=== PATIENT | male | born 1990 | race Caucasian/White ===

== ENCOUNTER 2020-07-17 00:13 | Emergency (ER) | payer OTHER ==
[~2020-07-17] VITALS: Ht 175.3 cm; Wt 95.3 kg
[2020-07-17 00:20] VITALS: BP 161/105
--- NOTE | 2020-07-17 00:20 | NUR ---
ED Nurse Note: Patient brought into ED from home by YAAKOV RA 829 and LOY for laceration to left forearm. Patient states he was cut by a knife. He is not being specific at this time as to what exactly happened. He denies wanting to kill himself at this time. [employer] is bedside questioning patient. Laceration is actively bleeding; pressure dressing applied and MD bedside. Patient is breathing normal and unlabored. He is aaox4.
[2020-07-17] MEDS ORDERED: Hydrogen Peroxide 473ml Bottle TOPIC ONE (00:28)
[2020-07-17] MEDS ORDERED: Bacitracin Oint UD TOPIC ONE (00:30)
[2020-07-17] MEDS ORDERED: Lidocaine 1% 10mg/ml/Epi 0.005mg/ml 10ml INJ ONE ×2 (00:30→07:06)
--- NOTE | 2020-07-17 01:00 | NUR ---
ED Nurse Note: Patient placed on medical hold by MD Bolivar due to patient's self inflicted wound. Patient does not have a plan to harm himself nor is he suicidal at this time. He is calm and cooperative. No acute distress.
--- NOTE | 2020-07-17 01:05 | NUR ---
ED Nurse Note: ERMD bedside for laceration repair.
[2020-07-17 01:40] VITALS: BP 153/88
--- NOTE | 2020-07-17 01:50 | NUR ---
ED Nurse Note: Tourniquet placed by ERMD at 0141 and second tourniquet placed at 0145 for bleeding control.
[2020-07-17 01:55] LABS: BASOPHILS % (AUTO) 1.2 % (0.0-2.0); EOSINOPHILS % (AUTO) 1.1 % (0.0-3.0); HEMATOCRIT 44.4 % (42.0-52.0); HEMOGLOBIN 15.1 G/DL (14.2-18.0); LYMPHOCYTES % (AUTO) 33.8 % (20.0-45.0); MEAN CORPUSCULAR VOLUME 100 FL (80-99); MONOCYTES % (AUTO) 10.2 % (1.0-10.0); NEUTROPHILS % (AUTO) 53.8 % (45.0-75.0); PLATELET COUNT 223 K/UL (150-450); RED BLOOD COUNT 4.43 M/UL (4.70-6.10); RED CELL DISTRIBUTION WIDTH 12.2 % (11.6-14.8)
[2020-07-17] MEDS ORDERED: ceFAZolin sod 1 GM in NS 55 ML IVPB ONE (02:00)
[2020-07-17] MEDS ORDERED: Morphine Sulfate 4mg/ml Inj (IV USE ONLY) IVP ONE (02:00)
--- NOTE | 2020-07-17 02:00 | NUR ---
ED Nurse Note: BEVERLY Bolivar did not repair laceration. MD Maharaj bedside for laceration repair.
--- NOTE | 2020-07-17 02:05 | NUR ---
ED Nurse Note: LUMA ROTH AT BEDSIDE FOR SURGICAL CONSULT
--- NOTE | 2020-07-17 02:10 | NUR ---
ED Nurse Note: Tourniquets removed from L arm at this time with MD Maharaj order to remove. Patient is able to move fingers and arm.
[2020-07-17 02:12] LABS: ANION GAP 13 mmol/L (5-15); BLOOD UREA NITROGEN 11 mg/dL (7-18); CALCIUM 8.1 MG/DL (8.5-10.1); CARBON DIOXIDE 21 MMOL/L (21-32); CHLORIDE 107 MMOL/L (98-107); POTASSIUM 4.1 MMOL/L (3.5-5.1); SODIUM 141 MMOL/L (136-145)
[2020-07-17 02:17] LABS: ALANINE AMINOTRANSFERASE 299 U/L (12-78); ALBUMIN 3.9 G/DL (3.4-5.0); ALBUMIN/GLOBULIN RATIO 1.1 (1.0-2.7); ALKALINE PHOSPHATASE 107 U/L (46-116); ASPARTATE AMINO TRANSFERASE 271 U/L (15-37); BILIRUBIN,TOTAL 0.2 MG/DL (0.2-1.0)
--- NOTE | 2020-07-17 02:35 | Emergency Room Report ---
History of Present Illness General Chief Complaint: Laceration Source: Patient, EMS (Owen Bolivar MD) Present Illness HPI Patient brought in by EMS. He has a laceration to the left forearm and refused to say how it occurred. [employer] are present also. Later when [employer] have left the patient admits that he self-inflicted this wound. Is girlfriend was cheating on him. He found this out yesterday. He was doing this to scare her but ended up cutting himself more deeply. There was arterial bleeding at home. He is uncertain how much blood he lost. Has a history of hypertension. He denies any numbness. Right-handed. Last tetanus either 2010 or 2011. The patient is never taken psychiatric medication. He does take Ativan for anxiety. He has had problems with alcohol withdrawal in the past. Patient is unaware of any contact with COVID-19 positive contacts. No fevers, chills, sore throat, chest pain, palpitations, nausea, vomiting, diarrhea, dysuria, abdominal pain, shortness of breath, joint pain, visual changes, dizziness, headache. 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 Reviewed Nursing Documentation: PMH: Agreed; PSxH: Agreed (Owen Bolivar MD) Nursing Documentation-PMH Hx Asthma: Yes (Owen Bolivar MD) Review of Systems All Other Systems: negative except mentioned in HPI (Owen Bolivar MD) Physical Exam Vital Signs Date Time Temp Pulse Resp B/P (MAP) Pulse Ox O2 Delivery O2 Flow Rate FiO2 07/17/20 00:12 99.0 142 18 161/105 (123) 99 Room Air Sp02 EP Interpretation: reviewed, normal General Appearance: well appearing, no apparent distress, GCS 15 Head: normocephalic Eyes: bilateral eye normal inspection ENT: moist mucus membranes Neck: supple Respiratory: lungs clear, normal breath sounds Cardiovascular #1: regular rate, rhythm Cardiovascular #2: 2+ radial (R) Gastrointestinal: normal inspection, normal bowel sounds, non tender, no mass, non-distended, overweight Genitourinary: no CVA tenderness Musculoskeletal: back normal, normal range of motion, gait/station normal, other - All wrist and finger tendons tested and functional Neurologic: alert, motor strength/tone normal, feather mixer III-XII nml as tested, d istal neuro normal, oriented x3 Psychiatric: depressed affect Suicide Risk Assessment: Suicidal Ideation: No Had intent to initiate attempt: Yes Pt's plan for suicide attempt: No Has means to complete attempt: Yes Skin: warm/dry, laceration - Deep 7 cm laceration left forearm more volar surface but more on the radial side (Owen Bolivar MD) Procedures Critical Care Time Critical Care Time Total Critical Care Time: 45 min bedside evaluation and treatment excludes procedures (EKG). Reason for critical care: Assessment of self-harm, hemorrhage control, consultation with general surgeon Possible complications: hypotension, hypertension, NV, shock, arrhythmias, metabolic acidosis, end organ damage, respiratory failure, blood loss and hemorrhage. Interventions: Placement on medical hold, arterial hemorrhage bleeding control, PT evaluations, emergent consultation with general surgeon, antibiotics Course: Patient presents with a self-inflicted left forearm injury. Determined to be self-harm and placed on medical hold. Hemorrhage control with application of direct pressure for at least 20 minutes. Antibiotics begun. Reassessment of bleeding status. Consultation with general surgery. Assist in general surgeon who responded to the emergency department and repaired laceration. Discussion with oncoming emergency physician. Consultations: nursing staff, EMS, consultation with general surgeon Performed by: Dr. Bolivar Tolerated well condition = serious (Owen Bolivar MD) Additional Procedure Procedure Narrative Arterial hemorrhage control laceration left forearm: Patient presented with a deep laceration. This was prepped with Betadine and there numbed with lidocaine 1% with epinephrine. A total of 7 cc were instilled subcutaneously and also deep into the muscle tissue. Bleeding started to become brisk and therefore a tourniquet was applied. Bleeding was slowed however incomplete therefore blood pressure cuff was applied while I had direct pressure on the arterial source and venous sources of bleeding. Tourniquets blood pressure cuff were continued and bleeding was controlled. The wound was packed with sterile 4 x 4's and an Pablo wrap was applied. General surgeon was contacted and came to repair the laceration. (Owen Bolivar MD) Medical Decision Making Diagnostic Impression: Primary Impression: Laceration Additional Impressions: Self-inflicted injury Alcohol abuse ER Course Patient presents with a deep left forearm laceration with arterial bleeding. Initial bleeding controlled with direct pressure and Pablo wrap. This was a self- inflicted wound and psychiatric evaluation needs to be undertaken including medical clearance. Tourniquet at 141 and 145. See procedure note and critical care. Morphine administered for pain of tourniquets. Ancef administered. Dr. Maharaj here to repair laceration. Ativan administered for anxiety. Patient signed out to Dr. Dobbs for psychiatric evaluation this morning. Repeat H&H ordered. "Shaky". States uses alcohol and has had problems with withdrawal in past. Denies SI now. [address] Dobbs and requests for repair of partial dehiscence of wound as well as psychiatric evaluation of self-harm. Laboratory Tests Test 07/17/20 01:20 07/17/20 03:20 White Blood Count 7.0 K/UL (4.8-10.8) Red Blood Count 4.43 M/UL (4.70-6.10) L Hemoglobin 15.1 G/DL (14.2-18.0) Hematocrit 44.4 % (42.0-52.0) Mean Corpuscular Volume 100 FL (80-99) H Mean Corpuscular Hemoglobin 34.2 PG (27.0-31.0) H Mean Corpuscular Hemoglobin Concent 34.1 G/DL (32.0-36.0) Red Cell Distribution Width 12.2 % (11.6-14.8) Platelet Count 223 K/UL (150-450) Mean Platelet Volume 7.7 FL (6.5-10.1) Neutrophils (%) (Auto) 53.8 % (45.0-75.0) Lymphocytes (%) (Auto) 33.8 % (20.0-45.0) Monocytes (%) (Auto) 10.2 % (1.0-10.0) H Eosinophils (%) (Auto) 1.1 % (0.0-3.0) Basophils (%) (Auto) 1.2 % (0.0-2.0) Sodium Level 141 MMOL/L (136-145) Potassium Level 4.1 MMOL/L (3.5-5.1) Chloride Level 107 MMOL/L (98-107) Carbon Dioxide Level 21 MMOL/L (21-32) Anion Gap 13 mmol/L (5-15) Blood Urea Nitrogen 11 mg/dL (7-18) Creatinine 1.0 MG/DL (0.55-1.30) Estimated Glomerular Filtration Rate > 60 mL/min (>60) Glucose Level 125 MG/DL (74-106) H Calcium Level 8.1 MG/DL (8.5-10.1) L Total Bilirubin 0.2 MG/DL (0.2-1.0) Aspartate Amino Transferase (AST) 271 U/L (15-37) H Alanine Aminotransferase (ALT) 299 U/L (12-78) H Alkaline Phosphatase 107 U/L (46-116) Total Protein 7.5 G/DL (6.4-8.2) Albumin 3.9 G/DL (3.4-5.0) Globulin 3.6 g/dL Albumin/Globulin Ratio 1.1 (1.0-2.7) Salicylates Level 1.9 ug/mL (2.8-20) L Acetaminophen Level < 2 MCG/ML (10-30) L Serum Alcohol 247 mg/dL Urine Opiates Screen Negative (NEGATIVE) Urine Barbiturates Screen Negative (NEGATIVE) Phencyclidine (PCP) Screen Negative (NEGATIVE) Urine Amphetamines Screen Negative (NEGATIVE) Urine Benzodiazepines Screen Positive (NEGATIVE) H Urine Cocaine Screen Negative (NEGATIVE) Urine Marijuana (THC) Screen Negative (NEGATIVE) (Owen Bolivar MD) ER Course patient had previous laceration repair done by Dr. Maharaj. Patient had recent self injury. Was noted to have some arterial bleeding initially. Skin had been closed with continuous suture. Patient was noted to have disruption of the initial suture. Wound had partially open. Portion of suture that was intact was tied. Patient's wound was prepped and anesthetized with 1% lidocaine with epi 3 cc. patient's wound was closed with 4 interrupted's 4-0 nylon suture. Adequate hemostasis. Repeat alcohol was ordered for medical clearance. Patient is medically cleared. Patient's wound had good hemostasis. Dr. Boles saw the patient via telemedicine visit. Patient recommended that the patient be discharged with prescription for Lexapro as well as referrals for psychiatric outpatient treatment. (Mitch Dobbs MD) Last Vital Signs Date Time Temp Pulse Resp B/P (MAP) Pulse Ox O2 Delivery O2 Flow Rate FiO2 07/17/20 07:30 99 16 135/84 100 07/17/20 06:00 98.8 Room Air Status: improved (Owen Bolivar MD) Disposition: HOME, SELF-CARE Condition: Improved Scripts Escitalopram Oxalate* (LEXAPRO*) 10 Mg Tablet 10 MG ORAL DAILY, #30 TAB Prov: Mitch Dobbs MD 07/17/20 Referrals: Douglas DUPONT,REFERRING (PCP) Owen Bolivar MD Jul 17, 2020 02:35 Mitch Dobbs MD Jul 17, 2020 07:31
--- NOTE | 2020-07-17 02:55 | NUR ---
ED Nurse Note: Laceration repair completed at this time. No complications noted. Patient tolerated procedure well. Wound dressed and bandaged.
--- NOTE | 2020-07-17 03:00 | NUR ---
ED Nurse Note: Patient changed into psych gown upon completion of laceration repair by surgeon. Belongings taken from patient. Patient ambulated to restroom with steady gait to wash hands of blood from laceration. He is cooperative and very talkative with RNs. He is asking for medication to help him relax since he is anxious due to situation. BEVERLY made aware.
--- NOTE | 2020-07-17 03:10 | NUR ---
BELONGINGS IN LOCKER #2.
[2020-07-17] MEDS ORDERED: LORazepam 1mg tab ORAL ONE ×2 (03:15→07:00)
[2020-07-17 06:00] VITALS: BP 139/85
--- NOTE | 2020-07-17 06:00 | NUR ---
ED Nurse Note: Blood drawn and sent to lab. Patient has been sleeping past two hours. NAD.
[2020-07-17 06:56] LABS: BASOPHILS % (AUTO) 1.4 % (0.0-2.0); HEMATOCRIT 35.6 % (42.0-52.0); HEMOGLOBIN 12.7 G/DL (14.2-18.0); LYMPHOCYTES % (AUTO) 46.5 % (20.0-45.0); MEAN CORPUSCULAR VOLUME 94 FL (80-99); MONOCYTES % (AUTO) 9.6 % (1.0-10.0); NEUTROPHILS % (AUTO) 41.5 % (45.0-75.0); PLATELET COUNT 188 K/UL (150-450); RED BLOOD COUNT 3.77 M/UL (4.70-6.10); RED CELL DISTRIBUTION WIDTH 12.7 % (11.6-14.8); WHITE BLOOD COUNT 6.4 K/UL (4.8-10.8)
--- NOTE | 2020-07-17 07:10 | NUR ---
HAND-OFF: Report given to TAMARA Benjamin. Patient is in no acute distress, calm and cooperative.
[2020-07-17 08:00] VITALS: BP 129/82
--- NOTE | 2020-07-17 08:01 | NUR ---
ED Nurse Note: Pt calm and cooperative, lying in bed with no signs of distress. Pt denies HI/SI at this time. Pt reports that he never had any desire to hurt himself. Alcohol to be redrawed @ 0900
--- NOTE | 2020-07-17 08:02 | Operative Note - Dictated ---
DATE OF OPERATION: 07/17/2020 PREOPERATIVE DIAGNOSIS: Laceration of the left forearm with arterial bleeding. POSTOPERATIVE DIAGNOSIS: Laceration of the left forearm with bleeding from the radial artery. OPERATION: Exploration of the wound, control of the bleeding, and repair of the laceration in 3 layers. COMPLICATION: None. SURGEON: Elizabeth Maharaj MD HEADER DOCK: None. ANESTHESIA: Local. ANESTHESIOLOGIST: ER physician. INDICATION: This is a 29-year-old male, who was brought to the emergency room with laceration of the left forearm. He is a right-handed man and apparently, it has happened on the night approximately at [address] Bolivar at the emergency room tried to control the bleeding and repair the laceration; he was unable, so a tourniquet was applied and requested my assistance. Exploration of the area showed that there was a laceration of about 4 inches on the radial side at the midportion of the forearm, more towards the volar aspect and the patient had arterial bleeding. Exploration was performed and the recurrent radial artery was identified, which was bleeding, so it was clamped and then it was ligated on both sides with the 3-0 Vicryl. The color of the hand was checked, it was normal, so the wound was cleaned up and under sterile condition, the fascia exploration was performed. I was unable to see laceration of the tendon. There was laceration of the muscle. The fascia was approximated with running suture of 3-0 Vicryl. Subcutaneous tissue was approximated with 3-0 Vicryl and then the skin incision was approximated with running mattress suture of 3-0 nylon. After the termination of the procedure, the hand was checked. The patient had good radial pulse. The color of the fingers were normal. The movement, flexion, and extension was normal. Supination and pronation was normal. The patient was informed that there is a possibility there has been laceration of the tendon or nerve or some other anatomy structures, which I did not see during the emergency repair and if there was any, he required to follow up with a hand surgeon to repair it. He understood and agreed. Sponge and needle count correct. Estimated blood loss 20 mL. Condition of the patient at the end of the procedure is stable. Elizabeth Maharaj M.D. DR: Laurence JOB#: [id number] CC: TERE
[2020-07-17] MEDS ORDERED: Tetanus/Diptheria/Pertussis IM ONE (08:15)
--- NOTE | 2020-07-17 08:25 | NUR ---
ED Nurse Note: Pt recived calm and cooperative. No signs of distress noted. No complaints of pain. Thearapuetic communication utilized.
[2020-07-17 10:00] VITALS: BP 136/85
[2020-07-17 10:02] VITALS: BP 112/80
--- NOTE | 2020-07-17 10:02 | NUR ---
ED Nurse Note: Dr. Temple assessed patient.
[2020-07-17] MEDS ORDERED: LEXAPRO10 MG ORAL (10:13)
--- NOTE | 2020-07-17 12:58 | NUR ---
ER DISCHARGE NOTE: Patient is cleared to be discharged per ERMD, pt is aox4, on room air, with stable vital signs. pt was given dc and prescription instructions, pt was able to verbalize understanding, pt id band removed. pt is able to ambulate with steady gait. pt took all belongings including $694, confirmed with pt. Witnessed by Sona Urbina RN.
--- NOTE | 2020-07-17 17:15 | History and Physical Report ---
DATE OF ADMISSION: 07/17/2020 HISTORY OF PRESENT ILLNESS: The patient is a male with a history of depression, anxiety, alcohol abuse versus dependence, who has been admitted to the hospital after he cut himself with a steak knife. The patient had a deep cut and he had 4 stitches. The patient stated that he had an argument with his girlfriend who he has been living with for some time. Apparently, the girlfriend gave him ultimatum to leave the house by the day after the alleged accident. The patient was intoxicated at that time as well as the girlfriend. The girlfriend called the police and the patient cut himself with a knife. He is not endorsing any suicidal or homicidal ideation. The patient received Ativan in the emergency room as he was anxious. He is minimizing his alcohol use. He has been unemployed since pandemic situation. The patient denied any depressive symptoms. Denies suicidal or homicidal ideation. Does not endorse any psychotic or manic symptoms. He is denying any homicidal or suicidal ideation. I recommended psychiatric unit for his anxiety and alcohol issues. He is reluctant to go to a psychiatric hospital and would like to go back to his place staying with his girlfriend. The patient stated that he is in the midst of getting another residence. PAST PSYCHIATRIC HISTORY: He denied any psychiatric hospitalization. Denied any self-mutilating behavior. He stated that this has been the first time that he has cut himself. PAST MEDICAL HISTORY: None. ALLERGIES: No known drug allergies. SUBSTANCE ABUSE HISTORY: No known history of illicit drug use; however, he has been drinking. He stated that he is not drinking every day. He had alcohol in his system when he was admitted. MENTAL STATUS EXAMINATION: Alert and oriented times self, place, and situation. Mood is neutral to anxious. Affect is full range. Thought process is linear and goal oriented. Thought content, no suicidal or homicidal ideation. No psychotic symptoms. Cognition is intact. Insight and judgment is fair. ASSESSMENT: [place] I Alcohol abuse versus dependence. Anxiety disorder. [place] II Deferred. [place] III Self-inflicted laceration. [place] IV Relationship issues. [place] V 60-70 PLAN: 1. We will start the patient on Lexapro 10 mg in the morning. 2. The patient is not an imminent danger to self or others. 3. The patient will be given recommendation to follow up with a psychiatrist after discharge. 4. Provide the patient with reality orientation. 5. Discussed with the ER physician as well as the nurse. Zuly Temple M.D. DR: MICKY JOB#: [id number] CC:
== END 2020-07-17 12:58 | disposition home or self-care (01) ==
LOC: EDBD 00:13 → EMR 00:40
DX: S51.812A Laceration without foreign body of left forearm, initial encounter (principal); F10.10 Alcohol abuse, uncomplicated; J45.909 Unspecified asthma, uncomplicated; Y90.8 Blood alcohol level of 240 mg/100 ml or more; X78.1XXA Intentional self-harm by knife, initial encounter; Y93.89 Activity, other specified; Y92.019 Unspecified place in single-family (private) house as the place of occurrence of the external cause
CPT/HCPCS: 12032; 35206; 36415; 80053; 80307; 85025; 90471; 90715; 96365; 96375; G0480; G0481; J0690; J2270; J2405; Z7502; 99291

== ENCOUNTER 2020-07-19 19:05 | Emergency (ER) | payer OTHER ==
[~2020-07-19] VITALS: Ht 175.3 cm; Wt 95.3 kg
[~2020-07-19 19:05] MED LIST: LEXAPRO10 MG ORAL
[2020-07-19 19:10] VITALS: BP 167/97
--- NOTE | 2020-07-19 19:39 | Emergency Room Report ---
History of Present Illness General Chief Complaint: Wound Recheck/Suture Removal Source: Patient Present Illness HPI 29-year-old male presents to the emergency department complaining of 6 out of 10 severity pain, swelling, bruising and erythema on the left forearm that has been progressive x3 days. Patient reports he was here 3 days ago with a complicated laceration that had to be closed by a surgeon due to arterial involvement. Patient reports he was placed on Keflex antibiotics however he states he is not been taking them as often as he is supposed to. Patient reports sometimes 12 hours between doses. He reports some increase in bruising. Patient denies additional trauma or fall affecting the left upper extremity. He denies fevers or chills. He denies paresthesias or loss of gross motor movements of the affected extremity. He denies skin color changes to fingers distal to laceration or skin decreased temperature. Pt. is UTD with vaccinations. He was here for self-inflected wound, Pt. denies SI/HI. 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 Oropeza is my supervising Physician whom patient management has been discussed with. Diagnostic Impression: Primary Impression: Encounter for wound re-check Additional Impression: Cellulitis of arm, left ER Course 29-year-old male presents to the emergency department complaining of 6 out of 10 severity pain, swelling, bruising and erythema on the left forearm that has been progressive x3 days. Patient reports he was here 3 days ago with a complicated laceration that had to be closed by a surgeon due to arterial involvement. Patient reports he was placed on Keflex antibiotics however he states he is not been taking them as often as he is supposed to. Patient reports sometimes 12 hours between doses. He reports some increase in bruising. He denies any discharge or scabbing at the site of the laceration. Patient denies additional trauma or fall affecting the left upper extremity. He denies fevers or chills. He denies paresthesias or loss of gross motor movements of the affected extremity. He denies skin color changes to fingers distal to laceration or skin decreased temperature. Pt. is UTD with vaccinations. He was here for self- inflected wound, Pt. denies SI/HI. Ddx considered but are not limited to cellulitis, abscess, hematoma, dehiscence just to name a few Vital signs: are WNL, pt. is afebrile H&PE are most consistent with healing deviously repaired 7cm laceration- with some warmth on palpation, and mild blanching surrounding erythema. generalized ST swelling noted, no evidence of dc at the site of laceration. ORDERS: none required at this time, the diagnosis is clinical ---- area of erythema was marked with a skin marker ED INTERVENTIONS: -wound examined -Sterile dressing applied by RN - Left arm Sling applied by avionics electronics technician. Pt. remains neurovascularly intact. -D/w pt. to continue taking previously prescribed abx in addition to new abx, and to look for signs of infection . DISCHARGE: At this time pt. is stable for d/c to home. Will provide printed patient care instructions, and any necessary prescriptions. Care plan and follow up instructions have been discussed with the patient prior to discharge. Last Vital Signs Date Time Temp Pulse Resp B/P (MAP) Pulse Ox O2 Delivery O2 Flow Rate FiO2 07/19/20 19:10 97.7 100 16 167/97 95 Room Air Disposition: HOME, SELF-CARE Condition: Stable Scripts Trimethoprim/Sulfamethoxazole 160/800* (BACTRIM DS TABLET*) 1 Each Tablet 1 TAB ORAL TWICE A DAY for 7 Days, #14 TAB Prov: Michelle Valdivia 07/19/20 Patient Instructions: Wound Check Additional Instructions: Take medications as directed. ADDITIONAL MEDICATION : BACTRIM DS Follow up with a Primary Care Provider or ED in 48 hours for wound re-check , even if your symptoms have resolved. --Please review list of primary care clinics, if you do not already have a primary care provider Return sooner to ED if new symptoms occur, or current symptoms become worse. - Please note that this Emergency Department Report was dictated using [employer] cartoonist technology software, occasionally this can lead to erroneous entry secondary to interpretation by the dictation equipment. Michelle Valdivia Jul 19, 2020 19:39
[2020-07-19] MEDS ORDERED: BACTRIM DS TAB1 EAC1 ORAL (19:45)
[2020-07-19 20:20] VITALS: BP 125/80
== END 2020-07-19 20:20 | disposition home or self-care (01) ==
LOC: EMR 19:36
DX: Z48.01 Encounter for change or removal of surgical wound dressing (principal); L03.114 Cellulitis of left upper limb; S51.812D Laceration without foreign body of left forearm, subsequent encounter; X83.8XXD Intentional self-harm by other specified means, subsequent encounter; J45.909 Unspecified asthma, uncomplicated
CPT/HCPCS: 99282

== ENCOUNTER 2020-08-18 14:01 | Emergency (ER) | payer OTHER ==
[~2020-08-18] VITALS: Ht 175.3 cm; Wt 95.3 kg
[~2020-08-18 14:01] MED LIST changes: +BACTRIM DS TAB1 EAC1 ORAL
[2020-08-18 14:16] VITALS: BP 148/74
--- NOTE | 2020-08-18 14:18 | NUR ---
ED Nurse Note:pt. came for sutures removal from left forearm
--- NOTE | 2020-08-18 14:35 | NUR ---
ED Nurse Note: Pt cleared by health care Provider for discharge. DC instructions was given and explained to pt and verbalized understanding of teachings. All medical deviecs such as ID band removed. Pt is AAO x4, ambulatory and left with all personal belongings.
--- NOTE | 2020-08-18 14:52 | Emergency Room Report ---
History of Present Illness General Chief Complaint: Wound Recheck/Suture Removal Source: Patient Present Illness HPI Disclaimer: Please note that this report is being documented using [employer] technology. This can lead to erroneous entry secondary to incorrect interpretation by the dictating instrument. HPI: 29-year-old presents for evaluation of suture removal. He had a laceration to the left arm with arterial bleed that was repaired by surgery here on 07/17. He has not been to a follow-up appointment therefore has had retained sutures for 1 month. He states he had multiple family issues to attend to and could not go to his follow-up appointment. Denies bleeding, swelling. Finished his antibiotics. No further injury. No other complaints. PMH: Reviewed PSH: Reviewed Allergies: Reviewed Social Hx: Reviewed Allergies: Coded Allergies: No Known Allergies (Unverified , 07/17/20) COVID-19 Screening Contact w/high risk pt: No Experienced COVID-19 symptoms?: No COVID-19 Testing performed [employer]: Yes - a month ago COVID-19 Screening: Negative COVID-19 COVID-19 Testing Source: clinic Nursing Documentation-PMH Hx Hypertension: Yes Hx Asthma: Yes Review of Systems All Other Systems: negative except mentioned in HPI Physical Exam Vital Signs Date Time Temp Pulse Resp B/P (MAP) Pulse Ox O2 Delivery O2 Flow Rate FiO2 08/18/20 14:04 98.6 89 19 148/74 (98) 98 General: Awake and alert, no acute distress HEENT: NC/AT. EOMI. Resp: Normal work of breathing Skin: Linear laceration scar of the left forearm approximately 5 inches appears well-healed with retained simple interrupted sutures and subcuticular stitch. MSK: Normal tone and bulk. Moving all extremities. No obvious deformity. Neuro: Awake and alert. Mentating appropriately Medical Decision Making Diagnostic Impression: Primary Impression: Encounter for removal of sutures ER Course 29-year-old male presents for evaluation of suture referred movable 1 month after placement. 4 simple interrupted sutures easily removed. The subcuticular stitch was also removed intact. No complications. No bleeding. Wound appears well-healed without signs of infection. Neurovascularly intact at start end the procedure. Follow-up as needed. Last Vital Signs Date Time Temp Pulse Resp B/P (MAP) Pulse Ox O2 Delivery O2 Flow Rate FiO2 08/18/20 14:38 98.6 68 19 148/74 98 Disposition: HOME, SELF-CARE Condition: Stable Referrals: Douglas DUPONT,REFERRING (PCP) Patient Instructions: Wound Check Additional Instructions: Please follow-up with your primary care doctor in the next 1 to 3 days to discuss this emergency department visit and for reevaluation. If you have any new or worsening symptoms please return to the emergency department for reevalu ation. Please note that this report is being documented using [employer] technology. This can lead to erroneous entry secondary to incorrect interpretation by the dictating instrument. Piotr Stephens MD Aug 18, 2020 14:52
== END 2020-08-18 14:35 | disposition home or self-care (01) ==
LOC: EMR 14:24
DX: S51.812D Laceration without foreign body of left forearm, subsequent encounter (principal); X58.XXXD Exposure to other specified factors, subsequent encounter; Z48.02 Encounter for removal of sutures; J45.909 Unspecified asthma, uncomplicated; I10 Essential (primary) hypertension
CPT/HCPCS: 99281